=== PATIENT | male | born 1945 | race Caucasian/White ===

== ENCOUNTER 2025-01-06 13:03 | Outpatient (AMB) | payer MEDICARE, SELFPAY ==
--- OUTSIDE RECORDS SUMMARY | 2025-01-06 13:06 | XMS_ITS | Encounter Summary ---
Author Organization [facility] Address [id number] [place] [phone] Care Team Providers Care Chiropractic Physician Name Role Phone Toño Marina MD Primary Care Provider Encounter Details Date Type Department Care Team (Late st Contact Info) Description 11/04/2024 Lab Requisition [facility] - Main Lab [address] [facility] [place] [address] Ivory Otero MD [address] [address] Elevated prostate specific antigen (PSA) Social History Tobacco Use Types Packs/Day Years Used Date Smoking Tobacco: Never Assessed Sex and Gender Information Value Date Recorded Sex Assigned at Not on file Legal Sex Male 5:48 AM EST Gender Identity Not on file Sexual Orientation Not on file documented as of this encounter Plan of Treatment Not on file documented as of this encounter Procedures Procedure Name Priority Date/Time Associated Diagnosis Comments AP OUTSIDE CONSULT Routine 11/02/2024 Elevated prostate specific antigen (PSA) documented in this encounter Results * Anatomic pathology outside consult (11/02/2024) Final Diagnosis Prostate, Right Medial Base (Core Biopsy): -BENIGN PROSTATE TISSUE Prostate, Right Medial Mid (Core Biopsy): -BENIGN PROSTATE TISSUE Prostate, 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 -Brewster Score: (3 + 3) = 6, Grade Group 1 Total Number of Cores: 1 Number of Positive Cores: 1 Percent of Prostatic Tissue Continuously Involved by Tumor: 5% Prostate, Right Lateral Base (Core Biopsy): -PROSTATIC ACINAR ADENOCARCINOMA CONVENTIONAL (USUAL) TYPE -Radha Score: (3 + 3) = 6, Grade Group 1 Total Number of Cores: 1 Number of Positive Cores: 1 Percent of Prostatic Tissue Continuously Involved by Tumor: <5% -PIN4 supports the diagnosis Prostate, Right Lateral Mid (Core Biopsy): -BENIGN PROSTATE TISSUE Prostate, Right Lateral [place] (Core Biopsy): -BENIGN PROSTATE TISSUE Prostate, Left Medial Base (Core Biopsy): -BENIGN PROSTATE TISSUE Prostate, Left Medial Mid (Core Biopsy): -BENIGN PROSTATE TISSUE Prostate, Left Medial [place] (Core Biopsy): -BENIGN PROSTATE TISSUE Prostate, Left Lateral Base (Core Biopsy): -BENIGN PROSTATE TISSUE Prostate, Left Lateral Mid (Core Biopsy): -BENIGN PROSTATE TISSUE Prostate, Left Lateral [place] (Core Biopsy): -BENIGN PROSTATE TISSUE 5 2:03 PM EDT [facility] ([facility] Comment D) PIN4 immunohistology supports the morphological diagnosis. 5 2:03 PM EDT [facility] ([place]) [facility] Clinical Information Elevated PSA = 9.5 [id number] 5 2:03 PM EDT [facility] Gross Description A. Prostate, Right Medial Base Biopsy: Labeled right medial biopsy . Received in formalin is a soft, wick core of tissue, measuring 1.6 cm in length and 0.1cm in diameter. The specimen is submitted in toto in one cassette, one piece. X6/PV B. Prostate, Right Medial Mid Biopsy: Labeled right medial mid . Received in formalin is a soft, wick core of tissue, measuring 1.7 cm in length and 0.1cm in diameter. The specimen is submitted in toto in one cassette, one piece. X6/PV C. Prostate, Right Medial [place] Biopsy: Labeled right medial apex . Received in formalin is a soft, wick core of tissue, measuring 2.5 cm in length and 0.1cm in diameter. The specimen is submitted in toto in one cassette, one piece. X6/PV D. Prostate, Right Lateral Base Biopsy: Labeled right lateral base . Received in formalin is a soft, wick core of tissue, measuring 1.6 cm in length and 0.1cm in diameter. The specimen is submitted in toto in one cassette, one piece. X6/PV E. Prostate, Right Lateral Mid Biopsy: Labeled right lateral mid . Received in formalin is a soft, wick core of tissue, measuring 1.5 cm in length and 0.1cm in diameter. The specimen is submitted in toto in one cassette, one piece. X6/PV F. Prostate, Right Lateral [place] Biopsy: Labeled right lateral apex . Received in formalin is a soft, wick core of tissue, measuring 1.4 cm in length and 0.1cm in diameter. The specimen is submitted in toto in one cassette, one piece. X6/PV G. Prostate, Left Medial Base Biopsy: Labeled left medial base . Received in formalin is a soft, wick core of tissue, measuring 1.5 cm in length and 0.1cm in diameter. The specimen is submitted in toto in one cassette, one piece. X6/PV H. Prostate, Left Medial Mid Biopsy: Labeled left medial mid . Received in formalin is a soft, wick core of tissue, measuring 1.2 cm in length and 0.1cm in diameter. The specimen is submitted in toto in one cassette, one piece. X6/PV I. Prostate, Left Medial [place] Biopsy: Labeled left medial apex . Received in formalin is a soft, wick core of tissue, measuring 1.9 cm in length and 0.1cm in diameter. The specimen is submitted in toto in one cassette, one piece. X6/PV J. Prostate, Left Lateral Base Biopsy: Labeled left lateral base . Received in formalin is a soft, wick core of tissue, measuring 1.7 cm in length and 0.1cm in diameter. The specimen is submitted in toto in one cassette, one piece. X6/PV K. Prostate, Left Lateral Mid Biopsy: Labeled left lateral mid . Received in formalin is a soft, wick core of tissue, measuring 1.8 cm in length and 0.1cm in diameter. The specimen is submitted in toto in one cassette, one piece. X6/PV L. Prostate, Left Lateral [place] Biopsy: Labeled left lateral apex . Received in formalin is a soft, wick core of tissue, measuring 1.5 cm in length and 0.1cm in diameter. The specimen is submitted in toto in one cassette, one piece. X6/PV 5 2:03 PM EDT [facility] Disclaimer NOTE: The immunohistochemical tests and in situ hybridization tests were developed and their performance characteristics were determined by [facility]. They have not been cleared or approved by the U.S. Food and Drug Administration. The FDA has determined that such clearance or approval is not necessary. These tests are used for clinical purposes. They should not be regarded as investigational or for research. This laboratory is certified under the Clinical Laboratory Improvement Amendments of 1988 (CLIA) as qualified to perform high complexity clinical laboratory testing. (controls appropriate) Unless otherwise specified, all tissue is 10% NB formalin fixed and paraffin embedded. Technical pathology services provided by [facility], at [address] [place] [address], [place] [address] (CLIA #[id number]/Daniele Nance MD, Otr Driver) 2:03 PM EDT [facility] Tissue Prostate / Unknown 11/02/20242024 11:35 AM EDT Tissue specimen (specimen) Prostate / Unknown 11/02/2024 11/04/2024 11 :35 AM EDT Tissue specimen (specimen) Prostate / Unknown 11/02/2024 11/04/2024 11 :35 AM EDT Tissue specimen (specimen) Prostate / Unknown 11/02/2024 11/04/2024 11 :35 AM EDT Tissue specimen (specimen) Prostate / Unknown 11/02/2024 11/04/2024 11 :35 AM EDT Tissue specimen (specimen) Prostate / Unknown 11/02/2024 11/04/2024 11 :35 AM EDT Tissue specimen (specimen) Prostate / Unknown 11/02/2024 11/04/2024 11 :35 AM EDT Tissue specimen (specimen) Prostate / Unknown 11/02/2024 11/04/2024 11 :35 AM EDT Tissue specimen (specimen) Prostate / Unknown 11/02/2024 11/04/2024 11 :35 AM EDT Tissue specimen (specimen) Prostate / Unknown 11/02/2024 11/04/2024 11 :35 AM EDT Tissue specimen (specimen) Prostate / Unknown 11/02/2024 11/04/2024 11 :35 AM EDT Tissue specimen (specimen) Prostate / Unknown 11/02/2024 11/04/2024 11 :35 AM EDT Ivory Otero MD LAB PATHOLOGY ORDERABLES Final Result Performing Organization Address City/State/[place] Co de Phone Number [facility] ([facility]) [facility] [address] [place] [address], documented in this encounter Visit Diagnoses Diagnosis Elevated prostate specific antigen (PSA) documented in this encounter Care Teams Chiropractic Physician Relationship Specialty Start Date End Date Toño Marina MD [address] [place] [address] PCP - General Internal Medicine 09/21/24 documented as of this encounter
--- OUTSIDE RECORDS SUMMARY | 2025-01-06 13:06 | XMS_ITS | Encounter Summary ---
Author Organization [facility] Address [address] [place] [phone] Care Team Providers Care Clay Artisan Name Role Phone Toño Marina MD Primary Care Provider [phone] Encounter Details Date Type Department Care Team (Late st Contact Info) Description 09/21/2024 Lab Requisition [facility] - Main Lab [address] [facility] [place] [address] Ivory Otero MD [address] [address] Elevated prostate specific antigen (PSA) Social History [...] Procedure Name Priority Date/Time Associated Diagnosis Comments FLUOROQUINOLONE RESISTANT GNR IDENTIFICATION AND SUSCEPTIBILITY Routine 09/21/2024 12:00 AM EST Elevated prostate specific antigen (PSA) CULTURE FLUOROQUINOLONE RESISTANT ORGANISM Routine 09/21/2024 12:00 AM EST Elevated prostate specific antigen (PSA) documented in this encounter Results * Fluoroquinolone resistant GNR identification and susceptibility (09/21/2024 12:00 AM EST) Result 1 No Fluoroquinolone Resistant GNR Detected. 09/25/2024 11:05 AM EST [facility] Swab Rectum structure / Unknown 09/21/2024 09/21/2024 9:24 AM EST Narrative [facility] - 09/25/2024 11:05 AM EST Performed at: ??01 - [facility] [address] ??[id number] Autotransfusionist: Pina Adkins MD, Phone: ??[phone] Ivory Otero MD LAB MICROBIOLOGY - GENER AL ORDERABLES Final Result Performing Organization Address City/[facility]/ZIP Co de Phone Number [facility] * Culture fluoroquinolone resistant organism (09/21/2024 12:00 AM EST) Fluoroquinolone Resist GNR Cul Final report 09/25/2024 11:05 AM EST [facility] Swab Rectum structure / Unknown 09/21/2024 09/21/2024 9:24 AM EST Narrative [facility] - 09/25/2024 11:05 AM EST Performed at: ??01 - [facility] [address] ??[id number] Autotransfusionist: Pina Adkins MD, Phone: ??[phone] us Ivory Otero MD LAB MICROBIOLOGY - GENER AL ORDERABLES Final Result Performing Organization Address City/[facility]/ZIP Co de Phone Number [facility] documented in this encounter Visit Diagnoses Diagnosis Elevated prostate specific antigen (PSA) documented in this encounter Care Teams Clay Artisan Relationship Specialty Start Date End Date Toño Marina MD [address] [place] [address] PCP - General Internal Medicine 09/21/24 documented as of this encounter
--- OUTSIDE RECORDS SUMMARY | 2025-01-06 13:06 | XMS_ITS | Clinical Summary ---
Author Organization [address] Address [address] [place] [address] Phone Care Team Providers Care Call Center Nurse Name Role Phone Toño Marina MD Primary Care Provider Encounters Date Type Department Care Team Description 11/04/2024 Lab Requisition [facility] - Main Lab [address] [facility] [address] [place] [address] Ivory Otero MD Elevated prostate specific antigen (PSA) from Last 3 Months Social History Tobacco Use Types Packs/Day Years Used Date Smoking Tobacco: Never Assessed Sex and Gender Information Value Date Recorded Sex Assigned at Not on file Legal Sex Male 5:48 AM EST Gender Identity Not on file Sexual Orientation Not on file Plan of Treatment Health Maintenance Due Date Last Done Comments COVID-19 Vaccine (#1) 1950 DTaP,Tdap,and Td Vaccines (1 - Tdap) 1966 Pneumococcal Vaccine: 50+ Ye ars (1 of 2 - PCV) 1966 Zoster Vaccines (1 of 2) 1966 RSV Immunization Adult Patie nts (1 - 1-dose 75+ series) 2022 Cholesterol Screening (Lipid Panel) 07/21/2022 Depression Screening 07/21/2022 Falls Risk Assessment 07/21/2022 Hepatitis C Screening 07/21/2022 Medicare Annual Wellness Visit 07/21/2022 Social Influencers of Health Screening 07/21/2022 Influenza Vaccine (Season Ended) 2025 HIB Vaccines Aged Out No longer eligi ble based on patient's age to complete this topic HPV Vaccines Aged Out No longer eligi ble based on patient's age to complete this topic Hepatitis A Vaccines Aged Out No long er eligible based on patient's age to complete this topic Hepatitis B Vaccines Aged Out No long er eligible based on patient's age to complete this topic IPV Vaccines Aged Out No longer eligi ble based on patient's age to complete this topic MMR Vaccines Aged Out No longer eligi ble based on patient's age to complete this topic Meningococcal ACWY Vaccine Aged Out N o longer eligible based on patient's age to complete this topic Meningococcal B Vaccine Aged Out No l onger eligible based on patient's age to complete this topic RSV Immunization Patients Un hans 20 months Aged Out No longer eligible b ased on patient's age to complete this topic Varicella Vaccines Aged Out No longer eligible based on patient's age to complete this topic Procedures Procedure Name Priority Date/Time Associated Diagnosis Comments AP OUTSIDE CONSULT Routine 11/02/2024 Elevated prostate specific antigen (PSA) from Last 3 Months Results * Anatomic pathology outside consult (11/02/2024) Final Diagnosis Prostate, Right Medial Base (Core Biopsy): -BENIGN PROSTATE TISSUE Prostate, Right Medial Mid (Core Biopsy): -BENIGN PROSTATE TISSUE Prostate, Right Medial [place] (Core Biopsy): -PROSTATIC ACINAR ADENOCARCINOMA CONVENTIONAL (USUAL) TYPE -Radha Score: (3 + 3) = 6, Grade Group 1 Total Number of Cores: 1 Number of Positive Cores: 1 Percent of Prostatic Tissue Continuously Involved by Tumor: 5% Prostate, Right Lateral Base (Core Biopsy): -PROSTATIC ACINAR ADENOCARCINOMA CONVENTIONAL (USUAL) TYPE -[place] Score: (3 + 3) = 6, Grade Group 1 Total Number of Cores: 1 Number of Positive Cores: 1 Percent of Prostatic Tissue Continuously Involved by Tumor: <5% -PIN4 supports the diagnosis Prostate, Right Lateral Mid (Core Biopsy): -BENIGN PROSTATE TISSUE Prostate, Right Lateral [place] (Core Biopsy): -BENIGN PROSTATE TISSUE Prostate, Left Medial Base (Core Biopsy): -BENIGN PROSTATE TISSUE Prostate, Left Medial Mid (Core Biopsy): -BENIGN PROSTATE TISSUE Prostate, Left Medial [place] (Core Biopsy): -BENIGN PROSTATE TISSUE Prostate, Left Lateral Base (Core Biopsy): -BENIGN PROSTATE TISSUE Prostate, Left Lateral Mid (Core Biopsy): -BENIGN PROSTATE TISSUE Prostate, Left Lateral [place] (Core Biopsy): -BENIGN PROSTATE TISSUE 5 2:03 PM EDT [facility] Comment D) PIN4 immunohistology supports the morphological diagnosis. 5 2:03 PM EDT [facility]) [facility] Clinical Information Elevated PSA = 9.5 [id number] 5 2:03 PM EDT [facility] Gross Description A. Prostate, Right [...] one piece. X6/PV C. Prostate, Right Medial [place] Biopsy: Labeled right medial apex . Received [...] one piece. X6/PV F. Prostate, Right Lateral [place] Biopsy: Labeled right lateral apex . Received [...] one piece. X6/PV I. Prostate, Left Medial [place] Biopsy: Labeled left medial apex . Received [...] one piece. X6/PV L. Prostate, Left Lateral [place] Biopsy: Labeled left lateral apex . Received in formalin is a soft, wick core of tissue, measuring 1.5 cm in length and 0.1cm in diameter. The specimen is submitted in toto in one cassette, one piece. X6/PV 5 2:03 PM EDT [facility] ([facility]) [facility] Disclaimer NOTE: The immunohistochemical tests and in situ hybridization tests were developed and their performance characteristics were determined by [facility]. They have not been [...] pathology services provided by [facility], at [address] [place] [address] (CLIA #[id number]/Daniele Nance MD, Husbandry Technician) 2:03 PM EDT [facility] ([facility] Tissue Prostate / Unknown 11/02/20242024 [...] Unknown 11/02/2024 11/04/2024 11 :35 AM EDT us Ivory Otero MD LAB PATHOLOGY ORDERABLES Final Result [facility] ([facility]) [facility] [address] [place] [address], from Last 3 Months Insurance MEDICARE [facility] Care Teams Call Center Nurse Relationship Specialty Start Date End Date Toño Marina MD [address] [place] [address] PCP - General Internal Medicine 09/21/24
--- NOTE | 2025-01-06 13:07 | A.OFFPC_ITS ---
Vital Signs 01/06/25 13:33 Height 5 ft 6 in Weight 217 lb BMI 35.0 BP 118/68 Blood Pressure Location Rt brachial Position Sitting Respiration 12 Pulse 74 Pulse Source Pulse Oximeter Temp 97.2 F Temp Source Oral Pulse Oximetry (%) 96 Oxygen Delivery Method Room Air Intake Visit Reasons: CPE Intake Note: New patient to establish care. Patient is also due for his colonoscopy Finisher Card Tender Required: No Allergies No Known Allergies Allergy (Verified 01/06/25 13:58) Medication List - Last Reconciled 01/06/25 by Gladys Desai, [facility]- allopurinol 100 mg PO DAILY amlodipine 10 mg PO DAILY atorvastatin 40 mg PO DAILY chlorthalidone 12.5 mg PO DAILY famotidine 10 mg PO DAILY losartan 100 mg PO DAILY Tobacco use date assessed: 01/06/25 Fall risk assessment: No Falls in past year Last assessed Fall Risk: 01/06/25 Dental Screening Dental Screen Date: 01/06/25 Did you have a dental visit in the last 12 months?: Yes Did you have a dental problem in the last 6 months where you did not have access to dental care?: No Was dental information given to patient?: Patient has dentist HPI HPI Comments History of Present Illness Details 79 y/o Lithuanian speaking M with gout, HTN, HLD, GERD, family hx of prostate ca (brothers), family hx of colon ca (paternal uncle) FHx: 3 brothers w/ prostate ca, Surgery: prostate bx , R shoulder, lap ryan Health Maintenance: [place] [facility] [place] Tdap Specialists: [facility] Here today to est care Previous PCP: Dr Luna, No records avail. Family hx of colon ca in paternal uncle, states due for repeat colon Family hx of prostate ca, he himself had bx done in the past, reports normal. Ff'd by [facility]. Gout: well controlled HLD: on statin w/o side effects HTN: controlled on current meds. does have some edema ble that is worse by end of the day GERD: controlled on pepcid Exam Awake alert NAD, son present and helps w/ translation RRR LS CTAB Trace edema BLE Pleasant and cooperative Plan Get records Labs today Cont all meds Refer for colon RTO in 6-8 weeks to cont to est care, sooner prn Total time spent caring for the patient today was 40 minutes. This includes time spent before the visit reviewing the chart, time spent during the visit, and time spent after the visit on documentation, reviewing laboratory results, diagnostic imaging, medications, performing a medically necessary evaluation, counseling on diagnoses, care coordination, ordering appropriate tests, ordering appropriate medications, review of tests performed by other providers, reporting test results with the patient, communication with other healthcare providers. [facility] Medical History (Updated 01/06/25 @ 14:13 by Gladys Desai [facility]) No pertinent past medical history Surgical History (Updated 01/06/25 @ 14:13 [facility] History of arthroscopy of right shoulder Hx laparoscopic cholecystectomy No pertinent past surgical history Family History (Updated 01/06/25 @ 13:38 by Kassandra Pretty MA) Father HTN (hypertension) Brain cancer Social History (Updated 01/06/25 @ 13:37 by Kassandra Pretty MA) Household Members: Spouse Housing: House Are you a primary career development coordinator/teacher to a significant other at home: No Do you presently have visiting nurse or other home services: No Alcohol intake: current Alcohol intake frequency: a few times a month Patient Tobacco Use Status: Never used Tobacco e-Cigarette/Vaping Use: Never Used Second Hand Smoke Exposure: No service: No Current occupational status: retired Cognitive needs: No Hearing needs: Yes Vision needs: No Questionnaire PHQ-9 Over the last 2 weeks, how often have you been bothered by any of the following problems? 1. Little interest or pleasure in doing things: not at all 2. Feeling down, depressed, or hopeless: not at all 3. Trouble falling or staying asleep, or sleeping too much: not at all 4. Feeling tired or having little energy: not at all 5. Poor appetite or overeating: not at all 6. Feeling bad about yourself - or that you are a failure or have let yourself or your family down: not at all 7. Trouble concentrating on things, such as reading the newspaper or watching television: not at all 8. Moving or speaking so slowly that other people could have noticed. Or the opposite - being so fidgety or restless that you have been moving around a lot more than usual: not at all 9. Thoughts that you would be better off or of hurting yourself in some way: not at all Total score: 0 Depression Screening Interpretation: Negative Depression Screening Done: Yes 25401 - PHQ-9 Billing: Yes Source: Developed by Drs. Abhilash Dacosta, Hannah Hensley, Abner Wong and colleagues, with an educational anu from [employer]. Thrive Questionnaire Date Thrive assessed: 01/06/25 I am a: Patient What is your living situation today?: I have a steady place to live Within the past 12 months, did the food you bought not last and you didn't have the money to get more?: Never true Within the past 12 months, did you worry whether your food would run out before you got money to buy more?: Never true Do you have trouble paying for medicines?: No Do you have trouble getting transportation to medical appointments?: No Do you have trouble paying your heating and electricity bill?: No Do you have trouble taking care of your child, family member or friend?: No Do you have trouble with day-to-day activities such as bathing, preparing meals, shopping, managing finances, etc.?: No Are you currently unemployed and looking for a job?: No Are you interested in more education?: No THRIVE Score: 0 AUDIT C Alcohol Use Questionnaire (AUDIT-C) 1. How often do you have a drink containing alcohol?: Monthly or less 2. How many drinks containing alcohol do you have on a typical day when you are drinking?: 1 or 2 3. How often do you have six or more drinks on one occasion?: Never Total Score: 1 Score Reviewed/Action Taken: Yes RICARDO-7 AMB Questionnaire RICARDO-7 Date RICARDO - 7 assessed: 01/06/25 Feeling nervous, anxious, or on edge: 0 = Not at all Not being able to stop or control worryin = Not at all Worrying too much about different things: 0 = Not at all Trouble relaxin = Not at all Being so restless that it is hard to sit still: 0 = Not at all Becoming easily annoyed or irritable: 0 = Not at all Feeling afraid as if something awful might happen: 0 = Not at all Total RICARDO-7 score (0-4 normal; 5-9 mild; 10-14 moderate; 15-21 severe): 0 Source: Developed by Drs. Abhilash Dacosta, Hannah Hensley, Abner Wong and colleagues, with an educational anu from [employer]. RICARDO-7 Assessment Billing RICARDO-7 Assessment Tool: RICARDO-7 Assessment 49109 Physical exam (Primary Care) Vital Signs: Last Vital Signs Temp 97.2 F 01/06/25 13:33 Pulse 74 01/06/25 13:33 Resp 12 01/06/25 13:33 BP 118/68 01/06/25 13:33 Pulse Ox 96 01/06/25 13:33 Oxygen Delivery Method Room Air 01/06/25 13:33 BMI result Body Mass Index 35.0 BMI Assessment/Plan discussion: High BMI High, discussed plan: lifestyle Tobacco/Smoking Status: Tobacco use Status Tobacco use date assessed 01/06/25 01/06/25 13:10 Patient Tobacco Use Status Never used Tobacco 01/06/25 13:37 e-Cigarette/Vaping Use Never Used 01/06/25 13:37 PHQ-9: PHQ-9 Score PHQ-9: Total score 0 01/06/25 13:38 Depression Screening Interpretation: Negative Thrive Assessment: Date of Thrive Assessment Date Thrive assessed 01/06/25 01/06/25 13:10 Coding Level of Care Code New Pt Level 4 (24215) Complex EM visit Add On G2211 Diagnoses Encounter to establish care Z76.89 Obesity (BMI 30-39.9) E66.9 Gout, unspecified cause, unspecified chronicity, unspecified site M10.9 Gout site: unspecified site Gout etiology: unspecified cause Chronicity: unspecified Mixed hyperlipidemia E78.2 Hyperlipidemia type: mixed hyperlipidemia Primary hypertension I10 Hypertension type: primary hypertension Gastroesophageal reflux disease without esophagitis K21.9 Esophagitis presence: without esophagitis Family history of prostate cancer Z80.42 Family history of colon cancer Z80.0 Additional Codes RICARDO-7 Assessment Billing - RICARDO-7 Assessment Tool: RICARDO-7 Assessment 30039 ([id number]) PHQ-9 - 73003 - PHQ-9 Billing: Yes ([id number]) Assessment & Plan Assessment & Plan (1) Encounter to establish care: Code(s): Z76.89 - Persons encountering health services in other specified circumstances (2) Obesity (BMI 30-39.9): Code(s): E66.9 - Obesity, unspecified Category: Medical (3) Gout: Code(s): M10.9 - Gout, unspecified Category: Medical Qualifiers: Gout site: unspecified site Gout etiology: unspecified cause Chronicity: unspecified Qualified Code(s): M10.9 - Gout, unspecified (4) HLD (hyperlipidemia): Code(s): E78.5 - Hyperlipidemia, unspecified Category: Medical Qualifiers: Hyperlipidemia type: mixed hyperlipidemia Qualified Code(s): E78.2 - Mixed hyperlipidemia (5) HTN (hypertension): Code(s): I10 - Essential (primary) hypertension Category: Medical Qualifiers: Hypertension type: primary hypertension Qualified Code(s): I10 - Essential (primary) hypertension (6) GERD (gastroesophageal reflux disease): Code(s): K21.9 - Gastro-esophageal reflux disease without esophagitis Category: Medical Qualifiers: Esophagitis presence: without esophagitis Qualified Code(s): K21.9 - Gastro-esophageal reflux disease without esophagitis (7) Family history of prostate cancer: Comment: 3 brothers Code(s): Z80.42 - Family history of malignant neoplasm of prostate Category: Medical (8) Family history of colon cancer: Comment: paternal uncle Code(s): Z80.0 - Family history of malignant neoplasm of digestive organs Category: Medical Plan . Orders: Orders Complete Blood Count no Diff Today E66.9 - Obesity, unspecified, E78.5 - Hyperlipidemia, unspecified, I10 - Essential (primary) hypertension, K21.9 - Gastro-esophageal reflux disease without esophagitis, M10.9 - Gout, unspecified Comprehensive Met. Panel Today E66.9 - Obesity, unspecified, E78.5 - Hyperlipidemia, unspecified, I10 - Essential (primary) hypertension, K21.9 - Gastro-esophageal reflux disease without esophagitis, M10.9 - Gout, unspecified Lipid Panel Today E66.9 - Obesity, unspecified, E78.5 - Hyperlipidemia, unspecified, I10 - Essential (primary) hypertension, K21.9 - Gastro-esophageal reflux disease without esophagitis, M10.9 - Gout, unspecified TSH reflex Free T4 Today E66.9 - Obesity, unspecified, E78.5 - Hyperlipidemia, unspecified, I10 - Essential (primary) hypertension, K21.9 - Gastro-esophageal reflux disease without esophagitis, M10.9 - Gout, unspecified Vitamin D 25-OH Total Today E66.9 - Obesity, unspecified, E78.5 - Hyperlipidemia, unspecified, I10 - Essential (primary) hypertension, K21.9 - Gastro-esophageal reflux disease without esophagitis, M10.9 - Gout, unspecified PSA, Ultra Sensitive Today E66.9 - Obesity, unspecified, E78.5 - Hyperlipidemia, unspecified, I10 - Essential (primary) hypertension, K21.9 - Gastro-esophageal reflux disease without esophagitis, M10.9 - Gout, unspecified Microalbumin, Random (w Creat) Today E66.9 - Obesity, unspecified, E78.5 - Hyperlipidemia, unspecified, I10 - Essential (primary) hypertension, K21.9 - Gastro-esophageal reflux disease without esophagitis, M10.9 - Gout, unspecified Vitamin B12 and Folate Today E66.9 - Obesity, unspecified, E78.5 - Hyperlipidemia, unspecified, I10 - Essential (primary) hypertension, K21.9 - Gastro-esophageal reflux disease without esophagitis, M10.9 - Gout, unspecified Referrals Gastroenterology Referral Z12.11 - Encounter for screening for malignant neoplasm of colon Patient Instructions: Walk-In Care (Urgent Care): We Make it Easy Walk-in for urgent medical issues such as: ? Seasonal Allergies ? Insect Bites ? Cough ? Diarrhea ? Acute Asthma Attacks ? Back, Knee or Joint Pain ? Ear Infection ? Fever without a Rash ? Headaches ? Nausea ? [place] Eye, Rash or Skin Irritation ? Sore Throat ? Sports Physicals ? Vomiting Most insurances are accepted. Patients do not need to be part of the [facility] to seek care at the walk-in clinic. Locations [address], [place] [address] ? [phone] [facility] in [place] provides services to ages 18 and over. Open Friday-Friday: 8 a.m. to 5 p.m. and Friday: 9 a.m. to 3 p.m.* *Hours may vary due to staffing availability. To confirm Walk-In Care hours in [place], please call [phone]. [address] [place] [address] ? [phone] [facility] in [place] provides services to ages 12 and over. Open Friday-Friday: 8 a.m. to 5 p.m. Hours may vary due to staffing availability. To confirm Walk-In Care hours in [place], please call [phone]. LABORATORY SERVICES: [facility] ? Primary Location [address] [place] [address] Friday through Friday 6:00 AM ? 5:00 PM Friday 7:00 AM ? 11:00 AM* [phone] The [facility] is centrally located near the front entrance of the [facility] for easy outpatient access. Convenient parking is provided for outpatients. *Hours may vary due to staffing availability. To confirm Laboratory hours for any location, please call [phone]. Offsite Location For your convenience, we offer offsite laboratory draw stations at the following locations: [address] [place] [address] ? [address], [address] Friday through Friday 7:30 AM ? 1:00 PM* [phone] *Hours may vary due to staffing availability. To confirm Laboratory hours for any location, please call [phone]. [place] ? [address] Friday through Friday 6:00 AM ? 3:30 PM* Friday 6:30 AM ? 3 PM* [phone] *Hours may vary due to staffing availability. To confirm Laboratory hours for any location, please call [phone] [place] [address] Friday through Friday 7:30 AM ? 4:00 PM* [phone] *Hours may vary due to staffing availability. To confirm Laboratory hours for any location, please call [phone] [place] [address] Friday through 9:00 AM ? 4:00 PM* *Hours may vary due to staffing availability. To confirm Laboratory hours for any location, please call [phone]. Appointments are not necessary. Walk-ins are welcome. Like all the departments throughout the [facility], our Lab undergoes frequent reviews to ensure the quality and accuracy of test results, and our staff takes special pride in its status as a nationally accredited facility. Patient Portal: ONE PATIENT. ONE RECORD. BETTER CARE. [facility] has a fully integrated, cutting- edge mobile electronic health information system that has revolutionized the way we care for our patients and manage our organization. This system improves communication and coordination enabling us to provide safe, higher-quality care, and an overall positive experience for staff and patients. Our first priority, as always, is to deliver the highest quality care possible. The system is running in the background supporting that priority. This portal is for all [facility] services and practices. If you are experiencing any technical difficulties with enrolling or logging into the Patient Portal please complete the [facility] Patient Portal Technical Support Form. [facility] now offers a new secure on-line interactive tool for patients to review their health information ? ?Patient Portal. This interactive web portal will enable patients and their families to take an active role in their care by providing easy, secure access to their health information via the internet. The Patient Portal provides patients with instant access to their health information, including laboratory results, medications, allergies, demographic information, visit history, and more. In addition to managing their own care, parents and health care proxies with authorized consent will appreciate the ability to access the records of those individuals for whom they provide care. Please note: if you wish to gain access (Proxy) to another patient?s portal, you will be required to come to the Medical Records Department in person at [facility]. Both the patient giving proxy access and the proxy will need to provide photo identification and complete the appropriate authorization. The Patient Portal also allows track their appointments online. The [facility] Patient Portal also saves patients time by allowing them to submit updates to their demographic and contact information prior to their visits. Portal email notifications will also alert patients to any new activity on their portal, such as test results and new appointments. In order to initially enroll in the [facility] Patient Portal, you will need to enter some required information including the following: * your [facility] Medical Record number * your personal home email address * name * date of Please note: In order to enroll in the [facility] Patient Portal, we need to have your email address on file in your electronic medical record. ?The email address needs to be specific for one person (yourself) in order for your Portal enrollment to be successful. ?You can update your email address in person with our Registration staff when you are registering for a hospital visit. ?Otherwise, you will need to come to the Health Information Management (Medical Records) Department at [facility]. ?We are open from Friday ? Friday from 7:30 a.m. ? 4:30 p.m. ?You will be required to present a photo id. Once you have successfully enrolled in the Patient Portal, you will receive a one-time user id and password for the Portal, sent to your email address. ?This will allow you to log into the Patient Portal within 99 hrs and reset your own logon id and password, and define personal security questions. ?Once your permanent login and password have been set, you can log into the [facility] Patient Portal at any time via the blue button above or from the Portal Logon button on any page of the [facility] website. [facility] and [facility] encourage all of our patients to enroll in Patient Portal as it presents a valuable opportunity for patients and their families to actively participate in their care and stay healthy Welcome to [facility]. ?We look forward to working with you.
[2025-01-06 13:33] VITALS: BP 118/68; PULSE 74; RESP 12; TEMP 36.2; O2SAT 96; BMI 35.0
== END 2025-01-06 14:24 | disposition home or self-care (01) ==
PROVIDERS: Visit Provider Nurse Practitioner Family
DX: E78.2 Mixed hyperlipidemia (principal); M10.9 Gout, unspecified; E66.9 Obesity, unspecified; Z68.35 Body mass index [BMI] 35.0-35.9, adult; Z76.89 Persons encountering health services in other specified circumstances; I10 Essential (primary) hypertension; K21.9 Gastro-esophageal reflux disease without esophagitis; Z80.42 Family history of malignant neoplasm of prostate; Z80.0 Family history of malignant neoplasm of digestive organs

== ENCOUNTER → 2025-01-06 13:03 | Outpatient (BNVA) | payer MEDICARE, SELFPAY | PROVIDERS: Visit Provider Nurse Practitioner Family ==

== ENCOUNTER 2025-01-06 14:11 | Outpatient (REF) | payer MEDICARE, SELFPAY ==
[2025-01-06 18:17] LABS: Hematocrit 43.8 % (42.0-52.0); Hemoglobin 14.6 g/dl (14.0-18.0); Mean Corpuscular HGB Conc 33.3 g/dl (31.0-36.0); Mean Corpuscular Hemoglobin 29.6 pg (27.0-33.0); Mean Corpuscular Volume 88.7 fL (80.0-98.0); Mean Platelet Volume 11.3 fL (9.4-12.4); Platelet Count 156 X10*3/uL (160-400); Red Blood Count 4.94 X10*6/uL (4.60-5.80); Red Cell Distribution Width 13.4 % (11.0-16.0); White Blood Count 5.8 X10*3/uL (4.8-10.8)
[2025-01-06 18:18] LABS: Albumin Level 4.4 g/dL (3.5-5.0); Alkaline Phosphatase 64 U/L (39-117); Anion Gap 11 (12-20); Aspartate Amino Transferase 29 U/L (5-37); Bilirubin Total 1.5 mg/dL (0.0-1.0); Blood Urea Nitrogen 17 mg/dL (9-16); Calcium 9.5 mg/dL (8.4-10.2); Carbon Dioxide 29 mmol/L (22-29); Chloride 108 mmol/L (96-108); Cholesterol 138 mg/dL (<200); Estimated Glomerular Filt Rate > 60; Glucose Random 106 mg/dL (60-115); HDL Cholesterol 57 mg/dL (>40); LDL Cholesterol Calculated 44 mg/dL (<100); Potassium 3.7 mmol/L (3.3-5.1); Sodium 144 mmol/L (135-145); Triglycerides 185 mg/dL (<150)
[2025-01-06 18:23] LABS: Creatinine Urine 101.85 mg/dL; Microalbum/Creatinine Ratio Ur 30.4 ug/mg cr (<30)
[2025-01-06 18:38] LABS: TSH reflex Free T4 0.76 uIU/mL (0.32-4.0)
[2025-01-06 18:42] LABS: Folate 12.7 ng/mL (> or = 4.0); Vitamin B12 371 pg/mL (200-900)
[2025-01-06 19:29] LABS: Alanine Aminotransferase 29 U/L (0-40)
[2025-01-12 07:49] LABS: PSA, Ultra Sensitive 10.32 ng/mL
== END 2025-01-06 14:12 | disposition home or self-care (01) ==
LOC: HO.WFDLDS 14:11
PROVIDERS: Visit Provider Nurse Practitioner Family
DX: K21.9 Gastro-esophageal reflux disease without esophagitis (principal); M10.9 Gout, unspecified; E78.5 Hyperlipidemia, unspecified; I10 Essential (primary) hypertension; E66.9 Obesity, unspecified; E78.2 Mixed hyperlipidemia; Z80.42 Family history of malignant neoplasm of prostate; Z80.0 Family history of malignant neoplasm of digestive organs; Z68.35 Body mass index [BMI] 35.0-35.9, adult; Z76.89 Persons encountering health services in other specified circumstances; Z12.5 Encounter for screening for malignant neoplasm of prostate
CPT/HCPCS: 36415; 80053; 80061; 82043; 82306; 82570; 82607; 82746; 84153; 84443; 85027; 96127; 99202

== ENCOUNTER 2025-03-02 10:07 | Outpatient (AMB) | payer MEDICARE, SELFPAY ==
--- NOTE | 2025-03-02 10:12 | A.OFFPC_ITS ---
Vital Signs 03/02/25 10:24 Height 5 ft 6 in Weight 212 lb 6 oz BMI 34.3 BP 110/66 Blood Pressure Location Rt brachial Position Sitting Respiration 12 Pulse 68 Pulse Source Pulse Oximeter Temp 97.1 F Temp Source Oral Pulse Oximetry (%) 96 Oxygen Delivery Method Room Air Intake Visit Reasons: 6-8 weeks, 30 min, est care after records reviewed Intake Note: Follow up Char Filter Operator Helper Required: Yes Char Filter Operator Helper Language: Romanian Char Filter Operator Helper Name: Benito [id number] Allergies No Known Allergies Allergy (Verified 03/02/25 11:19) Medication List - Last Reconciled 03/02/25 by Gladys Desai, [facility]- allopurinol 100 mg PO DAILY amlodipine 10 mg PO DAILY atorvastatin 40 mg PO DAILY chlorthalidone 12.5 mg PO DAILY famotidine 10 mg PO DAILY losartan 100 mg PO DAILY Tobacco use date assessed: 03/02/25 Fall risk assessment: No Falls in past year Last assessed Fall Risk: 03/02/25 Dental Screening Dental Screen Date: 03/02/25 Did you have a dental visit in the last 12 months?: Yes Did you have a dental problem in the last 6 months where you did not have access to dental care?: No Was dental information given to patient?: Patient has dentist HPI HPI Comments History of Present Illness Details 79 y/o Romanian speaking M with gout, HTN, HLD, GERD, family hx of prostate ca (brothers), family hx of colon ca (paternal uncle) NAV, Prostatic Intraepithelial neoplasia, tubular adenoma, prediabetes , fatty liver (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 Kalpesh Watson, Dtr [facility] Maintenance: Colon 2021, repeat 2024 referred today to [facility] scheduled 04/2025 PSA last visit 01/2025 FU appt 05/2025 Tdap 2017 Specialists: [facility] prostate Dr Oscar Hart, last visit 02/22 [facility] - Manager [facility] [employer] Dr Almanza, last visit 01/2025 for fatty liver has fu scheduled 05/2025 w/ US Romanian Char Filter Operator Helper Used: Walter Posey History of Present Illness - The patient is a 79-year-old male pres [facility] with follow-up of chronic conditions. -Previous PCP: Dr Luna, Records re viewed - Gout managed with allopurinol. - Hypertension, treated with amlodipine, chlorthalidone, losartan. - Hyperlipidemia under control with ator vastatin. - GERD managed with famotidine. - Chronic kidney disease with stable fun ction. - Sleep apnea; CPAP not used regularly. - PSA levels stable; history of prostati c intraepithelial neoplasia Managed by Uro @ [facility] . - Scheduled colonoscopy for tubular radha ariana history Fall 2024 @ [facility] - Prediabetes with recent glucose of 106 . - Nonalcoholic fatty liver; advised weig ht loss, ffd by Hepatology at [facility] - Gout: well controlled Review of Systems - Genitourinary: Reports stable PSA leve ls; recent urology visit with normal bladder scan but prostate enlargement noted. - Neurological: Reports history of trige brent neuralgia. - Respiratory: Reports obstructive sleep apnea but does not regularly use CPAP m achine due to discomfort. - Gastrointestinal: Reports management o f GERD with medication; history of fatty liver. - Cardiovascular: Denies new cardiovascu lar symptoms; reports stable hypertension management. - Endocrine: Reports prediabetes with re cent glucose monitoring. - Family history: Reports family history of prostate and colon cancer. Physical Exam General: Well developed, well nourished, in no acute distress. Appears stated age. Head: Normocephalic, atraumatic. Eyes: Pupils are equal, round and reactive to light and accommodation. Conjunctivae are clear. Vision grossly normal. Lungs: Clear to auscultation bilaterally. No rales, rhonchi or wheeze noted. Good air flow in all nelson. Heart: Regular rate and rhythm. No murmurs, click, rubs or gallops are noted. Musculoskeletal: Joints are nontender, without swelling, redness, or effusions. Pulses: Peripheral pulses are equal and palpable bilaterally. Extremities: No clubbing, cyanosis noted. Trace edema BLE Psych: Mood and affect appropriate. Results See below Discussion Notes The patient and I reviewed his chronic conditions, focusing on maintaining current management plans. We discussed his reluctance to use the CPAP machine due to discomfort, but he is aware of the risks associated with non-use. We reviewed PSA levels and recent findings concerning bladder and prostate conditions, with plans to continue following up with the urologist. Nonalcoholic fatty liver disease management was discussed, emphasizing weight loss to improve liver health. The importance of upcoming colonoscopy to monitor tubular adenoma was reestablished, and all relevant follow-ups were coordinated. Patient understands and agrees with the planned interventions. Assessment and Plan 1. Gout - Continue allopurinol 100 mg daily. 2. Essential Hypertension - Amlodipine, chlorthalidone, losartan r egimen continued. 3. Hyperlipidemia - Continue atorvastatin. 4. Gastroesophageal Reflux Disease - Maintain famotidine. 5. Chronic Kidney Disease - Monitor function and albuminuria. 6. HX of Trigeminal Neuralgia - Monitor symptoms. 7. Obstructive Sleep Apnea - Refused CPAP, accepting of risks 8. Prostatic Intraepithelial Neoplasia - Continue PSA monitoring, via [facility] 9. Tubular Adenoma - Colonoscopy pending. Fall 2024 At [facility] 10. Prediabetes - Maintain lifestyle changes. 11. Nonalcoholic Fatty Liver Disease - Weight management; follow up liver hea lth, via [facility] RTO OCTOBER SAWV, SOONER PRN Patient Instructions - Continue taking your medications as pr escribed. - Maintain a low-sodium diet and take me dications on time to manage hypertension. - Keep your appointment for the colonosc opy on May 16. - Work on weight loss for liver health; aim for gradual reduction over time. - Use the patient portal for any questio ns or concerns. - Schedule your next visit in October or oone if symptoms arise. Consent Patient was informed and verbally consented to the use of an ambient scribe for clinic note documentation during this visit. Total time spent caring for the patient today was 45 minutes. This includes time spent before the visit reviewing the chart, time spent during the visit, and time spent after the visit on documentation, reviewing laboratory results, diagnostic imaging, medications, performing a medically necessary evaluation, counseling on diagnoses, care coordination, ordering appropriate tests, ordering appropriate medications, review of tests performed by other providers, reporting test results with the patient, communication with other healthcare providers. [facility] Medical History (Updated 03/02/25 @ 11:33 by CHRIS Mckenzie-CHRISTINA) No pertinent past medical history Surgical History (Updated 03/02/25 @ 11:09 by MAYANK Mckenzie) History of arthroscopy of right shoulder History of colonoscopy (~2021) Hx laparoscopic cholecystectomy No pertinent past surgical history Family History (Updated 01/06/25 @ 13:38 by Kassandra Pretty MA) Father HTN (hypertension) Brain cancer Social History (Updated 01/06/25 @ 13:37 by Kassandra Pretty MA) Household Members: Spouse Both parents involved: No Caregiver staying overnight: No Housing: House Are you a primary rehab care assistant to a significant other at home: No Do you presently have visiting nurse or other home services: No 75 years or older and lives alone: No Alcohol intake: current Alcohol intake frequency: a few times a month Patient Tobacco Use Status: Never used Tobacco e-Cigarette/Vaping Use: Never Used Second Hand Smoke Exposure: No service: No Current occupational status: retired Cognitive needs: No Hearing needs: Yes Vision needs: No Questionnaire PHQ-9 Over the last 2 weeks, how often have you been bothered by any of the following problems? 1. Little interest or pleasure in doing things: not at all 2. Feeling down, depressed, or hopeless: not at all 3. Trouble falling or staying asleep, or sleeping too much: not at all 4. Feeling tired or having little energy: not at all 5. Poor appetite or overeating: not at all 6. Feeling bad about yourself - or that you are a failure or have let yourself or your family down: not at all 7. Trouble concentrating on things, such as reading the newspaper or watching television: not at all 8. Moving or speaking so slowly that other people could have noticed. Or the opposite - being so fidgety or restless that you have been moving around a lot more than usual: not at all 9. Thoughts that you would be better off or of hurting yourself in some way: not at all Total score: 0 Depression Screening Interpretation: Negative Depression Screening Done: Yes 37213 - PHQ-9 Billing: Yes Source: Developed by Drs. Abhilash Dacosta, Hannah Hensley, Abner Wong and colleagues, with an educational anu from [employer]lbs. Thrive Questionnaire Date Thrive assessed: 03/02/25 I am a: Patient What is your living situation today?: I have a steady place to live Within the past 12 months, did the food you bought not last and you didn't have the money to get more?: Never true Within the past 12 months, did you worry whether your food would run out before you got money to buy more?: Never true Do you have trouble paying for medicines?: No Do you have trouble getting transportation to medical appointments?: No Do you have trouble paying your heating and electricity bill?: No Do you have trouble taking care of your child, family member or friend?: No Do you have trouble with day-to-day activities such as bathing, preparing meals, shopping, managing finances, etc.?: No Are you currently unemployed and looking for a job?: No Are you interested in more education?: No Please select the resources that you would like help with: None Currently or been in a relationship where the following occur: No concerns reported THRIVE Score: 0 AUDIT C Alcohol Use Questionnaire (AUDIT-C) 1. How often do you have a drink containing alcohol?: 4 or more times a week 2. How many drinks containing alcohol do you have on a typical day when you are drinking?: 1 or 2 3. How often do you have six or more drinks on one occasion?: Never Total Score: 4 RICARDO-7 AMB Questionnaire RICARDO-7 Date RICARDO - 7 assessed: 03/02/25 Feeling nervous, anxious, or on edge: 0 = Not at all Not being able to stop or control worryin = Not at all Worrying too much about different things: 0 = Not at all Trouble relaxin = Not at all Being so restless that it is hard to sit still: 0 = Not at all Becoming easily annoyed or irritable: 0 = Not at all Feeling afraid as if something awful might happen: 0 = Not at all Total RICARDO-7 score (0-4 normal; 5-9 mild; 10-14 moderate; 15-21 severe): 0 Source: Developed by Drs. Abhilash Dacosta, Hannah Hensley, Abner Wong and colleagues, with an educational anu from 71lbs. RICARDO-7 Assessment Billing RICARDO-7 Assessment Tool: RICARDO-7 Assessment 66781 Physical exam (Primary Care) Vital Signs: Last Vital Signs Temp 97.1 F 03/02/25 10:24 Pulse 68 03/02/25 10:24 Resp 12 03/02/25 10:24 BP 110/66 03/02/25 10:24 Pulse Ox 96 03/02/25 10:24 Oxygen Delivery Method Room Air 03/02/25 10:24 BMI result Body Mass Index 34.3 Tobacco/Smoking Status: Tobacco use Status Tobacco use date assessed 03/02/25 03/02/25 10:13 Patient Tobacco Use Status Never used Tobacco 03/02/25 10:13 e-Cigarette/Vaping Use Never Used 03/02/25 10:13 PHQ-9: PHQ-9 Score PHQ-9: Total score 0 03/02/25 10:27 Depression Screening Interpretation: Negative Thrive Assessment: Date of Thrive Assessment Date Thrive assessed 03/02/25 03/02/25 10:13 Currently or been in a relationship where the following occur: No concerns reported Results Reviewed Results Reviewed: RUN: 03/02/25 1110 PAGE 1 [facility] [address] [place] [id number] Enamel Finisher: Yassine Bailey M.D. Specimen Inquiry Name: Melvin Crooks Age/Sex: 79/M : 1945 Unit#: [id number] Attend Dr: Gladys Desai Re01/06/25 Status: DEP REF Location: HO.WFDLDS Disch: SPEC : [id number] TOMA: 01/06/25142 STATUS: COMP REQ : [id number] RECD: 01/06/25-[address]: Gladys Desai COMP: 01/06/25-1837 ENTERED: 01/06/25-[address]: ORDERED: CMP, Lipid Panel, Vitamin D 25-OH, TSH Rflx Test Result Flag Reference Sodium 144 135-145 mmol/L Potassium 3.7 3.3-5.1 mmol/L CL 108 96-108 mmol/L CO2 29 22-29 mmol/L Gap 11 L 12-20 BUN 17 H 9-16 mg/dL Creat 0.74 0.5-1.4 mg/dL eGFR > 60 Chronic Kidney Disease: Estimated GFR < 60 mL/min/1.73m2 Severe Kidney Disease: Estimated GFR < 15 mL/min/1.73m2 Glucose, Random 106 60-115 mg/dL CA 9.5 8.4-10.2 mg/dL Total Bili 1.5 H 0.0-1.0 mg/dL AST (GOT) 29 5-37 U/L ALT (GPT) 29 0-40 U/L Protein, Total 7.0 6.5-8.0 g/dL Alb 4.4 3.5-5.0 g/dL Triglyceride 185 H <150 mg/dL Desirable Triglyceride: less than 150 mg/dL Borderline High Triglyceride 150-199 mg/dL High Triglyceride: 200-499 mg/dL Very High Triglyceride: greater than or equal to 5OO mg/dL Cholesterol 138 <200 mg/dL Desirable Cholesterol: less than 200 mg/dL Borderline High Cholesterol: 200-239 mg/dL High Cholesterol: greater than 239 mg/dL LDL Calculated 44 <100 mg/dL Desirable LDL: less than 100 mg/dL Near Optimal/Above Optimal LDL: 110-129 mg/dL Borderline High LDL: 130-159 mg/dL High LDL: 160-189 mg/dL Very High LDL: greater than or equal to 190 mg/dL HDL 57 >40 mg/dL Desirable HDL: greater than 40 mg/dL Note: This HDL assay may give artificially low results in patients with liver disease. Alk Phos 64 39-117 U/L Vitamin D 25-OH 40.0 >30 ng/mL Health Based Reference Values* < 20 ng/mL Deficient 20-30 ng/mL Insufficient > 30 ng/mL Sufficient *Ricarda LOBATO. N Engl J Med. 2007;357:266-280 There is no well-established upper level of normal vitamin D levels. Some laboratories use 50 ng/mL as an upper limit of normal. However, toxicity is patient-dependent and may occur at any level. Careful correlation with the patient's presentation is necessary and, if there is concern for vitamin D toxicity, treatment should be considered irrespective of the serum level. Care must be taken in interpreting Vitamin D results from different laboratories and methodologies. Published data demonstrated that results from patients undergoing hemodialysis may show a negative bias when tested with various automated 25-OH vitamin D assays when compared to LC-MS/MS. When testing samples from patients whose predominant form of Vitamin D is Vitamin D2, such as patients receiving Vitamin D2 supplementation, results that are subtherapeutic should be confirmed with another method such as LC-MS/MS. TSH 0.76 0.32-4.0 uIU/mL Creat, Ur 101.85 mg/dL Microalbumin Ur 31.0 mg/L Alb/Creat Ratio 30.4 H <30 ug/mg cr Albumin/Creatinine Ratio Reference Ranges: Normal: < 30 ug/mg creatinine Microalbuminuria: 30 - 300 ug/mg creatinine Clinical Albuminuria: > 300 ug/mg creatinine RUN: 03/02/25 1111 PAGE 1 [facility] [address] [place] [phone] Enamel Finisher: Yassine Bailey M.D. Specimen Inquiry Name: Melvin Crooks Age/Sex: 79/M : 1945 Unit#: [id number] Attend Dr: Gladys Desai Re01/06/25 Status: DEP REF Location: HO.WFDLDS Disch: SPEC : [id number] TOMA: 01/06/25 STATUS: COMP REQ : [id number] RECD: 01/06/25 [facility] DR: Gladys Desai COMP: 01/12/250749 ENTERED: 01/06/25-1412 [facility] DR: ORDERED: PSA, Ultra Sens Test Result Flag Reference PSA, Ultra Sens 10.32 ng/mL UNTREATED RESULT = 11.26 REFERENCE RANGES for PSA: LESS THAN 0.10 ng/mL AFTER RADICAL PROSTATECTOMY. 4.0 ng/mL OR LESS IN HEALTHY MALES WITHOUT PROSTATECTOMY. PSA values obtained with different assay methods or kits cannot be used interchangeably. This test was performed using the [facility] DxI method. PSA, ICMA is not to be used as a diagnostic procedure without confirmation of the diagnosis by another established product or procedure. The lower limit of accurate quantification for this assay is 0.02 ng/mL. PSA values less than 0.02 ng/mL cannot be accurately measured and will be reported as less than 0.02 ng/mL. Specimens with PSA levels below the lower limit of accurate quantification should be considered as negative. In patients with a negative result for post prostatectomy PSA, serial monitoring of PSA levels at regular intervals, along with physical examinations and other tests, may help to detect recurrent prostate cancer. 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 Chronic kidney disease stage: stage 2 (GFR 60-89) History of trigeminal neuralgia Z86.69 NAV (obstructive sleep apnea) G47.33 Additional Codes RICARDO-7 Assessment Billing - RICARDO-7 Assessment Tool: RICARDO-7 Assessment 69465 ([id number]) PHQ-9 - 14775 - PHQ-9 Billing: Yes ([id number]) Assessment & Plan Assessment & Plan (1) Prostatic intraepithelial neoplasia I: Comment: MANAGED BY [facility] Code(s): N42.31 - Prostatic intraepithelial neoplasia Category: Medical (2) Tubular adenoma: Onset Date: 2021 Comment: REPEAT COLON 2024 SCHEDULED AT [facility] Code(s): D36.9 - Benign neoplasm, unspecified site Category: Medical (3) NAFLD (nonalcoholic fatty liver disease): Comment: (Fibrosure US 2024 fibrosis) MANAGED BY [facility] HEPATOLOGY Code(s): K76.0 - Fatty (change of) liver, not elsewhere classified Category: Medical (4) CKD (chronic kidney disease): Comment: ON ARB Code(s): N18.9 - Chronic kidney disease, unspecified Category: Medical Qualifiers: Chronic kidney disease stage: stage 2 (GFR 60-89) Qualified Code(s): N18.2 - Chronic kidney disease, stage 2 (mild) (5) History of trigeminal neuralgia: Code(s): Z86.69 - Personal history of other diseases of the nervous system and sense organs Category: Medical (6) NAV (obstructive sleep apnea): Comment: declined cpap Code(s): G47.33 - Obstructive sleep apnea (adult) (pediatric) Category: Medical Plan . Medications: New allopurinol 100 mg PO DAILY 90 tabs 2RF amlodipine 10 mg PO DAILY 90 tabs 2RF chlorthalidone 12.5 mg (1/2 x 25 mg) PO DAILY 90 tabs 2RF famotidine 10 mg PO DAILY 90 tabs 2RF atorvastatin 40 mg PO DAILY 90 tabs 2RF losartan 100 mg PO DAILY 90 tabs 2RF
[2025-03-02 10:24] VITALS: BP 110/66; PULSE 68; RESP 12; TEMP 36.2; O2SAT 96; BMI 34.3
--- OUTSIDE RECORDS SUMMARY | 2025-03-02 10:40 | XMS_ITS | Encounter Summary ---
Author Organization [facility] Address [id number] [place] [id number] Care Team Providers Care Reimbursement Consultant Name Role Phone Toño Marina MD Primary Care Provider Encounter Details Date Type Department Care Team (Late st Contact Info) Description 09/21/2024 Lab Requisition [facility] - Main Lab [address] [facility] [place] [address] Ivory Otero MD [address] [address] Elevated prostate specific antigen (PSA) Social History [...] - 09/25/2024 11:05 AM EST Performed at: - [facility] [address] [id number] Director Smb Sales: Pina Adkins MD, Phone: [phone] Ivory Otero MD LAB MICROBIOLOGY - GENER AL ORDERABLES Final Result Performing Organization Address City/[facility]/ZIP Co de Phone Number [facility] * Culture fluoroquinolone resistant organism (09/21/2024 12:00 AM EST) Fluoroquinolone Resist GNR Cul Final report 09/25/2024 11:05 AM EST [facility] Swab Rectum structure / Unknown 09/21/2024 09/21/2024 9:24 AM EST Narrative [facility] - 09/25/2024 11:05 AM EST Performed at: - [facility] [address] [id number] Director Smb Sales: Pina Adkins MD, Phone: [phone] Ivory Otero MD LAB MICROBIOLOGY - GENER AL ORDERABLES Final Result [facility] documented in this encounter Visit Diagnoses Diagnosis Elevated prostate specific antigen (PSA) documented in this encounter Care Teams Reimbursement Consultant Relationship Specialty Start Date End Date Toño Marina MD [address] [place] [address] PCP - General Internal Medicine 09/21/24 documented as of this encounter
== END 2025-03-02 11:29 | disposition home or self-care (01) ==
LOC: HO.HMCFM 10:08
PROVIDERS: PCP Nurse Practitioner Family; Visit Provider Nurse Practitioner Family
DX: N42.31 Prostatic intraepithelial neoplasia (principal); D36.9 Benign neoplasm, unspecified site; K76.0 Fatty (change of) liver, not elsewhere classified; N18.2 Chronic kidney disease, stage 2 (mild); Z86.69 Personal history of other diseases of the nervous system and sense organs; G47.33 Obstructive sleep apnea (adult) (pediatric)

== ENCOUNTER → 2025-03-02 10:07 | Outpatient (BNVA) | payer MEDICARE, SELFPAY | PROVIDERS: PCP Nurse Practitioner Family; Visit Provider Nurse Practitioner Family | DX: N42.31 Prostatic intraepithelial neoplasia (principal); D36.9 Benign neoplasm, unspecified site; K76.0 Fatty (change of) liver, not elsewhere classified; N18.2 Chronic kidney disease, stage 2 (mild); G47.33 Obstructive sleep apnea (adult) (pediatric); Z86.69 Personal history of other diseases of the nervous system and sense organs | CPT/HCPCS: 96127; 99212 ==